=== PATIENT | male | born 1975 ===

== ENCOUNTER 2021-12-27 14:14 | Outpatient (CLI) | payer BC, SELFPAY ==
--- NOTE | ~2021-12-27 | US_ITS ---
EXAMINATION: US art doppler w press LE BI DATE: 12/27/2021 16:14 INDICATION: Weak lower extremity pulses. Vascular disease risk factors of hypertension and chronic sm oking. TECHNIQUE: Segmental pressures and plethysmographic and Doppler waveforms of the brachial and lower e xtremity arteries were obtained. COMPARISON: None. FINDINGS: Right and left brachial artery pressures of 128 mm Hg and 111 mm Hg, respectively, are concordant (no rmal difference <= 30 mmHg). The right and left high-thigh pressure indices are 1.16 and 1.03, respec tively (normal > 1.2). The right ankle-brachial index (KERRI) is 1.05 (normal >= 0.9-1). The right great toe-brachial index (T BI) is 0.46 (normal >= 0.6-0.8). The right lower extremity segmental pressure gradients are increased between the right posterior tibial artery and the right [id number]-[id number] popliteal artery (normal grad ients <= 20-30 mmHg between adjacent levels on the same leg or the same levels on the two legs). Luz Maria rial waveforms are triphasic with brisk systolic upstrokes throughout the arteries of the right lower limb. The left KERRI is 1.05. The left TBI is 0.39. The left lower extremity segmental pressure gradients are within normal limits. Arterial waveforms are triphasic at the left common femoral and superficial fe moral arteries and biphasic in the left popliteal, posterior tibial and dorsalis pedis arteries with brisk systolic upstrokes throughout. IMPRESSION: 1. Peripheral arterial occlusive disease with normal bilateral ABIs but mildly decreased right and mo derately decreased left TBIs. Reviewed, dictated and finalized at location A. IMPRESSION: 1. Peripheral arterial occlusive disease with normal bilateral ABIs but mildly decreased right and moderately decreased left TBIs.
== END 2021-12-27 14:15 | disposition home or self-care (01) ==
LOC: ANHIMG 14:25
PROVIDERS: PCP Emergency Medicine; Visit Provider Emergency Medicine
DX: R09.89 Other specified symptoms and signs involving the circulatory and respiratory systems (principal); I77.1 Stricture of artery
CPT/HCPCS: 93923